=== PATIENT | male | born 1945 | race Caucasian/White ===

== ENCOUNTER 2017-12-23 13:41 | Emergency (ER) | payer BC, OTHER ==
[~2017-12-23] VITALS: Ht 182.9 cm; Wt 103.1 kg
[~2017-12-23 13:41] MED LIST: ALBUTEROL SULF8.5 GM IH; AUGMENTIN875 MG PO
[2017-12-23 14:12] LABS: HEMATOCRIT 42.7 % (38.0-50.0); HEMOGLOBIN 14.5 G/DL (12.5-16.6); MCH 31.3 PG (29.0-34.0); MCV 92.2 FL (86-99); PLATELET COUNT 157 K/uL (156-360); RBC DIS.WIDTH-CV 12.8 % (11.8-14.6); RBC DIS.WIDTH-SD 43.4 % (39-53); RED BLOOD COUNT 4.63 M/uL (4.00-5.50); WHITE BLOOD COUNT 10.6 K/uL (4.1-10.2)
[2017-12-23 14:24] LABS: CHLORIDE 107 mEq/L (99-109); POTASSIUM 3.9 mEq/L (3.7-5.4); SODIUM 142 mEq/L (136-147)
[2017-12-23 14:26] LABS: GLUCOSE 128 mg/dL (70-99)
[2017-12-23 14:30] LABS: CREATININE 0.9 mg/dL (0.6-1.3); GFR ESTIMATE (CALCULATED) > 59 mL/min/ (58.99-99999); UREA NITROGEN (BUN) 23 mg/dL (9-23)
[2017-12-23 15:57] LABS: TROP-I INTERPRETATION NEGATIVE; TROPONIN-I 0.03 ng/mL (0.0-0.30)
[2017-12-23] MEDS ORDERED: AMBIEN10 MG PO (17:24)
[2017-12-23 18:58] LABS: TROP-I INTERPRETATION NEGATIVE; TROPONIN-I 0.02 ng/mL (0.0-0.30)
[2017-12-23 19:34] VITALS: BP 126/72
== END 2017-12-23 19:40 | disposition home or self-care (01) ==
LOC: EME 13:41
PROVIDERS: Emergency Medicine Emergency Medical Services
DX: R55 Syncope and collapse (principal); R42 Dizziness and giddiness; R53.1 Weakness; G47.00 Insomnia, unspecified; F41.9 Anxiety disorder, unspecified; I73.9 Peripheral vascular disease, unspecified
CPT/HCPCS: 70450; 71046; 80048; 84484; 85027; 93005; 99281; 99283